=== PATIENT | female | born 1930 ===

== ENCOUNTER 2017-05-20 13:49 | Outpatient (CLI) | payer MEDICARE ==
--- NOTE | 2017-05-21 08:20 | XRay Report ---
LUMBAR SPINE THREE VIEWS: 05/20/17 13:49:00 CLINICAL: Low back pain. FINDINGS: Grade I L5-S1 spondylolisthesis with no pars defect identified. Narrowing of the L5-S1 disc space. Grade 1 L3-4 retrolisthesis. Moderate anterior osteophytes at L1 to. No fracture. The pedicles are intact. No fracture. Calcification of the abdominal aorta. IMPRESSION: Grade I L5-S1 spondylolisthesis with no pars defect identified. Great I L3-4 retrolisthesis. 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
== END 2017-05-20 13:50 | disposition home or self-care (01) ==
LOC: SPVIMAG 13:49
PROVIDERS: ATTEND Internal Medicine
DX: M51.37 Other intervertebral disc degeneration, lumbosacral region (principal); M43.17 Spondylolisthesis, lumbosacral region; I70.0 Atherosclerosis of aorta; M25.78 Osteophyte, vertebrae
CPT/HCPCS: 72100